=== PATIENT | male | born 1975 | race Caucasian/White ===

== ENCOUNTER 2018-12-27 07:12 | Day surgery (SDC) | payer BC ==
[~2018-12-27 07:12] MED LIST: ACETAMINOPHEN 1,000 MG/100 ML BTL IV ONE; CEFAZOLIN 2 Gram 2 GM/50 ML BAG IVPB ONE; FAMOTIDINE 20MG TABLET PO ONE; MECLIZINE 25 MG TABLET PO ONE; METOCLOPRAMIDE 10 MG TABLET PO ONE
[2018-12-27] MEDS ORDERED: MIDAZOLAM HCL 2MG/2ML VIAL IV ONE (07:13)
[2018-12-27] MEDS ORDERED: DEXAMETHASONE 4 MG/ML 1ML VIAL IVP ONE ×2 (07:13)
[2018-12-27] MEDS ORDERED: HYDROMORPHONE HCL 2 MG/ML VIAL IV ONE ×2 (07:13)
[2018-12-27] MEDS ORDERED: HYDROCODONE/APAP 7.5/325MG TABLET PO ONE ×3 (07:13→11:20)
[2018-12-27] MEDS ORDERED: SUFENTANIL CITRATE 50 MCG/ML AMPUL IV ONE (07:13)
[2018-12-27] MEDS ORDERED: BUPIVACAINE LIPOSOME/PF 133MG/10ML VIAL IV ONE ×2 (07:13)
[2018-12-27] MEDS ORDERED: MORPHINE SULFATE PF 10MG/10ML VIAL IV ONE ×2 (07:13)
[2018-12-27] MEDS ORDERED: LIDOCAINE 2% MDV (20MG/ML) 20ML VIAL IV ONE (07:13)
[2018-12-27] MEDS ORDERED: SEVOFLURANE 250 ML INH ONE (07:13)
[2018-12-27] MEDS ORDERED: PROPOFOL 10 MG/ML VIAL IV ONE (07:13)
[2018-12-27] MEDS ORDERED: BUPIVACAINE 0.5% W/EPI MPF 30 ML VIAL SQ ONE (09:55)
[2018-12-27] MEDS ORDERED: METHYLPREDNISOLONE 40MG/VIAL IM ONE (09:55)
[2018-12-27] MEDS ORDERED: RINGERS SOLUTION,LACTATED 1,000 ML IV ONE (10:45)
[2018-12-27] MEDS ORDERED: HYDROMORPHONE HCL 2 MG/ML VIAL IVP PRN (11:22)
--- NOTE | 2018-12-28 08:50 | Operative Note ---
DATE OF SURGERY: 12/27/2018 PREOPERATIVE DIAGNOSIS: Severe impingement right shoulder. POSTOPERATIVE DIAGNOSES: 1. 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 2. 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 3. Supine glenohumeral labral tear. 4. Profound external impingement of the right shoulder. 5. Arthrosis, right distal clavicle. OPERATION: 1. Right shoulder arthroscopy with intraarticular debridement. 2. Right shoulder open acromioplasty, CA ligament resection, subacromial bursectomy. 3. Right shoulder distal clavicle resection. Staff Surgeon: Reno Roblero MD Anesthesia: General. Preparation: Chloraprep. Individual Considerations: None. PROCEDURE: The patient was taken to the operating room, placed supine on the operating room table. He had a successful induction with general anesthetic. He was placed in a semi-seated beach chair position. His right arm and shoulder were prepped and draped in the usual fashion. Examination under anesthesia showed full motion and no instability. The patient had posterior portal identified for arthroscopy. Skin was infiltrated with 0.5% Marcaine with epinephrine prior. An 18-gauge spinal needle was easily placed in the joint, and the joint was inflated with normal saline. A stab wound was made, and then a blunt-tipped trocar for the scope was easily placed in the joint. The joint was inflated with normal saline. An anterior accessory portal was then made just inferior to the intact long head of the biceps tendon in a retrograde fashion with a Wissinger juan, and the joint was irrigated out. The patient's glenohumeral joint had grade 3 changes on the humeral head and some grade 3 in about the posterior third. The glenoid had some grade 4 changes. The grade 3 changes were smoothed with a shaver. No significant synovitis and nothing really in the inferior pouch. There was fraying of the labrum superiorly. All this was smoothed with a shaver. The long head was intact. Rotator cuff showed signs of contusion but was otherwise intact. Subscap tendon was normal. After irrigation, portals were closed with lindsay. The patient had an anterior approach to the subacromial space and distal clavicle. Skin was again infiltrated with 0.5% Marcaine with epinephrine prior. Sharp dissection carried down through skin and subcutaneous tissues. Small veins were coagulated with a Bovie. An anterior deltoid interval was developed. Care was taken not to split the deltoid more than about 4 cm distal to the anterior tip of the acromion to prevent injury to the axillary nerve. Once in the subacromial space, there was a very tight space with a thick bursa. Large anterior spurs, large spurs at the AC joint. The deltoid was then taken subperiosteally off the anterior aspect of the acromion, over the top of the intact CA ligament, and off the anterior aspect of the degenerated distal clavicle. CA ligament was resected with a Bovie. Distal clavicle was resected with an oscillating saw taking about 1 cm. He had a downsloping acromion with spurs at the AC joint, and anterior acromioplasty was performed taking a little less than a centimeter, most of this being spur, and tapering towards posteromedially to include the spurs at the AC joint. The undersurface was smoothed with a rasp. A bursectomy was performed which was thickened. After irrigation, I now had a good look at the rotator cuff. It looked contused but it was otherwise intact. I placed a 22-gauge spinal needle through the skin and into the joint itself for a later injection. I then reattached the deltoid with multiple interrupted #2 Vicryl going directly throughout the bony acromion. Periosteal cuff and distal clavicle were closed with a running #1 Vicryl. Anterior deltoid interval was closed with running #1 Vicryl. Subcu was closed in layers with 2-0 plus Vicryl and skin was closed with lindsay. The needle that I had placed in the joint, I injected 40 mg of Depo-Medrol with 5 mL of 0.5% Marcaine with epinephrine into the subacromial space. I placed an 18-gauge spinal needle and placed about 15-18 mL of 0.5% Marcaine with epinephrine along with another 40 mg of Depo-Medrol and 10 mg of morphine. A sterile bulky compressive dressing and sling were applied. The patient tolerated the procedure well. Needle and sponge counts were correct. Estimated blood loss was minimal. He was taken back to recovery in good condition. There were no complications. JOAQUÍN
== END 2018-12-27 11:52 | disposition home or self-care (01) ==
LOC: SUR 07:12
PROVIDERS: ATTEND Orthopaedic Surgery
DX: S43.431A Superior glenoid labrum lesion of right shoulder, initial encounter (principal); M94.211 Chondromalacia, right shoulder; M19.011 Primary osteoarthritis, right shoulder
CPT/HCPCS: 76942; C9290; J1030; J7120